=== PATIENT | female | born 1945 | race Caucasian/White ===

== ENCOUNTER 2021-01-24 19:25 | Emergency (ER) | payer OTHER, MEDICARE ==
[~2021-01-24] VITALS: Ht 157.5 cm; Wt 97.1 kg
[~2021-01-24 19:25] MED LIST: ASCO500 PO; ASPI81EC PO; CALTRATE; CITRACAL; CONEST.625 PO; FISH1000 PO; IRBHYD150 PO; MECL12.5 PO; MULVITMINF PO; NORVASC; PSYL5.85P PO; RABE20 PO; TOCO400 PO
[2021-01-24] MEDS ORDERED: OXAYDO5 M1 PO (23:49)
== END 2021-01-24 23:55 | disposition home or self-care (01) ==
LOC: ER 19:25
DX: S52.501A Unspecified fracture of the lower end of right radius, initial encounter for closed fracture (principal); Z79.899 Other long term (current) drug therapy; Z88.0 Allergy status to penicillin; Z88.1 Allergy status to other antibiotic agents; Z88.5 Allergy status to narcotic agent; Z88.2 Allergy status to sulfonamides; W54.1XXA Struck by dog, initial encounter; W01.0XXA Fall on same level from slipping, tripping and stumbling without subsequent striking against object, initial encounter
CPT/HCPCS: 29125; 73100; 99283-25